=== PATIENT | female | born 1935 | race Caucasian/White ===

== ENCOUNTER 2021-06-11 10:25 | Day surgery (SDC) | payer MEDICARE ==
[2021-06-11] MEDS ORDERED: Sodium Bicarbonate 2.5 MEQ/5 ML VIAL ONE (10:55)
[2021-06-11] MEDS ORDERED: Lidocaine 1% PF 5 ML VIAL ONE ×2 (10:55→11:02)
[2021-06-11 13:54] VITALS: BP 125/58; TEMP 98.9
[2021-06-11] MEDS ORDERED: FLU VACC QS2021-22(65YR UP)/PF 240 MCG/0.7 ML SYRINGE IM ONE (14:00)
== END 2021-06-11 12:00 | disposition home or self-care (01) ==
LOC: CSHULT 10:25
PROVIDERS: ATTEND Internal Medicine Hematology & Oncology
DX: R18.8 Other ascites (principal); C78.7 Secondary malignant neoplasm of liver and intrahepatic bile duct; C25.8 Malignant neoplasm of overlapping sites of pancreas; E11.9 Type 2 diabetes mellitus without complications; I10 Essential (primary) hypertension; F41.8 Other specified anxiety disorders; K21.9 Gastro-esophageal reflux disease without esophagitis; Z79.82 Long term (current) use of aspirin; Z79.899 Other long term (current) drug therapy; Z79.4 Long term (current) use of insulin
CPT/HCPCS: 49083; 71045